=== PATIENT | female | born 1965 | race Two or more races ===

== ENCOUNTER 2022-05-13 10:33 | Emergency (ER) | payer OTHER ==
[~2022-05-13] VITALS: Ht 167.6 cm; Wt 83.0 kg
[2022-05-13] MEDS ORDERED: MEROPENEM500 MG (10:41)
[2022-05-13] MEDS ORDERED: METFORMIN HCL500 MG (10:42)
[2022-05-13] MEDS ORDERED: KETO10TA2 PO (13:52)
== END 2022-05-13 13:58 | disposition home or self-care (01) ==
LOC: ER 10:33
DX: B34.9 Viral infection, unspecified (principal); R53.81 Other malaise; Z20.822 Contact with and (suspected) exposure to COVID-19; Z88.0 Allergy status to penicillin